=== PATIENT | female | born 1980 | race Caucasian/White ===

== ENCOUNTER 2022-08-20 12:28 | Outpatient (OUT) | payer OTHER, SELFPAY ==
--- NOTE | 2022-08-20 12:41 | CT_ITS ---
The [address] [address] Patient Name: ERIKA CLARK MRN: [id number] date: 1980 Sex: F Assigned Patient Location: CT Current Patient Location: CT Accession/Order Number: [id number] Exam Date: 08/20/2022 13:55 Report Date: 08/20/2022 16:08 At the request of: NATACHA SALAMANCA Procedure: CT foot RT wo con EXAM: CT foot RT wo con HISTORY: Pain due to internal orthopedic prosthetic devices COMPARISON: Foot x-rays 08/08/2022 TECHNIQUE: Axial CT imaging is performed. Sagittal and coronal reformatted/reconstructed sequencing was additionally performed. FINDINGS: Patient is status post first metatarsophalangeal joint arthrodesis using dorsal plate and screws. The internal hardware exhibits no gross abnormality. No visualized fracture, dislocation, subluxation or osseous lesion. No visualized soft tissue edema. There appears to be osseous incorporation of the postoperative bed. The remainder of the joint spaces are unremarkable. IMPRESSION: Postoperative first metatarsophalangeal joint arthrodesis with no gross visualized osseous abnormality. Electronically authenticated by: RODRI NELSON Date: 08/20/2022 16:08
== END 2022-08-20 12:29 ==
LOC: CT 12:29
PROVIDERS: PCP Family Medicine; Visit Provider Podiatrist Foot & Ankle Surgery
DX: T84.84XA Pain due to internal orthopedic prosthetic devices, implants and grafts, initial encounter (principal); R10.0 Acute abdomen
CPT/HCPCS: 73700

== ENCOUNTER 2022-08-20 12:45 | Outpatient (OUT) | payer OTHER, SELFPAY ==
--- NOTE | 2022-08-20 12:50 | CT_ITS ---
[address] [address] Patient Name: ERIKA CLARK MRN: [id number] date: 1980 Sex: F Assigned Patient Location: CT Current Patient Location: CT Accession/Order Number: [id number] Exam Date: 08/20/2022 13:55 Report Date: 08/20/2022 16:27 At the request of: NON-STAFF PHYSICIAN Procedure: CT abdomen pelvis w con EXAMINATION: CT abdomen pelvis w con HISTORY: Acute abdomen pain R10.0 Left upper quad pain, sx 07-09-22 to remove part of pancreas and spleen COMPARISON: CT abdomen 05/09/2022, MRI abdomen 06/04/2022 TECHNIQUE: Axial, Coronal, and Sagittal images were obtained without and/or with IV contrast as indicated by examination type. Dose reduction techniques were achieved by using automated exposure control and/or adjustment of mA and/or kV according to patient size and/or use of iterative reconstruction technique. FINDINGS: LUNG BASES: No visible pulmonary or pleural disease. LIVER: No enlargement, atrophy, suspicious density, or significant focal lesion. BILIARY: No dilatation or calcification. PANCREAS: 4.2 cm cyst at tail of pancreas. No appreciable mass or abnormal duct dilation. SPLEEN: Splenectomy. ADRENALS: No mass or enlargement. KIDNEYS: No mass, obstruction, or calcification. BOWEL/MESENTERY: No visible mass, obstruction, or bowel wall thickening. AORTA/VASCULAR: No aneurysm or dissection. RETROPERITONEUM: No mass or adenopathy. LYMPH NODES: No adenopathy. URINARY BLADDER: No visible focal wall thickening, lesion, or calculus. PELVIC ORGANS: Hysterectomy. ABDOMINAL WALL: No mass or hernia. BONES: No bony lesion or fracture. OTHER: Negative. IMPRESSION: 1.No acute or specific findings to account for patient's left upper quadrant symptoms. 2.Pancreatic pseudocysts 4.2 cm in diameter, adjacent the tail of the pancreas. This is significantly smaller than the previously seen 9.2 cm cyst. 3. No findings to suggest pancreatitis. 4. Interval splenectomy. No suspicious findings. Electronically authenticated by: FREDDIE CASAS Date: 08/20/2022 16:27
== END 2022-08-20 12:46 ==
LOC: CT 12:45
PROVIDERS: PCP Family Medicine
DX: R10.0 Acute abdomen (principal)
CPT/HCPCS: 73700; 74177; Q9967

== ENCOUNTER 2022-11-22 08:45 | Outpatient (OUT) | payer OTHER, SELFPAY ==
--- NOTE | 2022-11-22 09:24 | PM.PRESUREVA ---
History of Present Illness History of Present Illness Chief complaint: painful hardware right foot Narrative: Patient presents for preadmission testing. The patient states she had right foot surgery approximately a year ago and has been having pain with the hardware. She states the pain is worse when she is walking. She denies numbness, tingling, weakness, or any other complaints. Review of Systems ROS Narrative REVIEW OF SYSTEMS: Negative except as stated in HPI, ten or more systems reviewed. Constitutional: No fever , chills, weakness ENT: No sore throat or epistaxis Cardiovascular: No edema, chest pain, palpitations, or activity intolerance Respiratory: No shortness of breath, cough, or wheezing Gastrointestinal: No abdominal pain, constipation, diarrhea, or vomiting Genitourinary: No dysuria or hematuria Neurological: No numbness, tingling, weakness, or headache Psychiatric: No mood changes [facility] Medical History (Updated 11/22/22 @ 09:12 by Latasha Morris NP) Surgical History (Updated 11/22/22 @ 09:12 by Latasha Morris NP) Family History (Updated 11/22/22 @ 09:12 by Latasha Morris NP) Other Family history of hypertension Social History (Updated 11/22/22 @ 09:08 by Latasha Morris NP) Within the past year, how often did you have a drink containing alcohol: 2-3 times a week Smoking status: Never smoker Non-prescribed substance use: denies use Previous occupational history: Self Employed Highest level of school completed/degree received: Associate degree: academic program Meds Home Medications and Allergies Home Medications Medication Instructions Recorded Confirmed Type acetaminophen 500 mg tablet 500 mg PO Q6H 11/22/22 11/22/22 History alprazolam 0.25 mg tablet 0.25 mg PO QDAY PRN anxiety 11/22/22 11/22/22 History cyclobenzaprine 10 mg tablet 10 mg PO QPM 11/22/22 11/22/22 History levothyroxine 112 mcg tablet 112 mcg PO QDAY 11/22/22 11/22/22 History (Synthroid) Allergies Allergy/AdvReac Type Severity Reaction Status Date / Time amoxicillin Allergy Rash Verified 11/22/22 09:05 Penicillins Allergy Rash Verified 11/22/22 09:05 Exam Narrative Exam Narrative: Constitutional: Awake, alert, comfortable, well-appearing, nontoxic, interactive, vital signs as charted Head: Normocephalic, atraumatic Neck: Supple, normal appearance, normal range of motion, no meningeal signs, no lymphadenopathy Respiratory: No respiratory distress, breath sounds clear Cardiovascular: Regular rate and rhythm, strong and regular heart tones Musculoskeletal: Normal gait, no swelling or edema; right foot: tenderness overlying the dorsal aspect of the 1st right MPJ, limited range of motion, good capillary refill, sensation intact Skin: No rashes or induration, no lesions, only visible skin inspected Neuro: No neurological deficits, normal sensation Psychiatric: Oriented ?3, normal affect Assessment and Plan Assessment and Plan (1) Painful orthopaedic hardware: Plan Removal of hardware right foot scheduled with Dr. Brown 12/10/2022.
== END 2022-11-22 08:46 | disposition home or self-care (01) ==
LOC: PST 08:46
PROVIDERS: PCP Family Medicine
DX: Z01.818 Encounter for other preprocedural examination (principal); T84.84XA Pain due to internal orthopedic prosthetic devices, implants and grafts, initial encounter
CPT/HCPCS: G0463

== ENCOUNTER 2022-12-10 06:25 | Day surgery (SDC) | payer OTHER, SELFPAY ==
[2022-11-22 09:21] VITALS: BP 119/80; PULSE 74; RESP 14; TEMP 36.5; O2SAT 99; BMI 24.8
[2022-12-10] VITALS (11 sets, daily range): BP systolic 116–137; BP diastolic 75–96; PULSE 57–105; RESP 7–19; TEMP 36.1–36.2; O2SAT 97–100; BMI 24.8
[2022-12-10 06:47] LABS: Glucometer 102 mg/dL (74-106)
[2022-12-10] MEDS: LACTATED RINGER'S SOLUTION 1,000 ML 50 ML IV (07:03)
[2022-12-10] MEDS: SCOPOLAMINE 1 MG/3 DAYS TRANSDERM PATCH 1 PATCH TD (07:20)
[2022-12-10] MEDS: CLINDAMYCIN PHOSPHATE/D5W 900 MG/50 ML PIGGYBACK 100 MG IV (07:40)
[2022-12-10] MEDS: BUPIVACAINE HCL 0.5% PF 50 MG/10 ML VIAL INJ (08:04)
--- NOTE | 2022-12-10 08:34 | XR_ITS ---
The [address] [address] Patient Name: ERIKA CLARK MRN: [id number] date: 1980 Sex: F Assigned Patient Location: [facility] Current Patient Location: Accession/Order Number: [id number] Exam Date: 12/10/2022 09:00 Report Date: 12/10/2022 15:16 At the request of: RAYRAY AYALA Procedure: XR foot RT min 3V EXAM: XR foot RT min 3V HISTORY: postop xr pacu COMPARISON: 08/08/2022. TECHNIQUE: 3 views right foot. FINDINGS/IMPRESSION: Recent postoperative change removal of first MTP joint arthrodesis hardware. There is recent postoperative change and edema with overlying bandaging. Solid osseous fusion present without fracture across the first MTP joint. Remaining osseous structures intact. Electronically authenticated by: KATIE DE PAZ Date: 12/10/2022 15:16
[2022-12-10 09:16] LABS: Glucometer 102 mg/dL (74-106)
--- NOTE | 2022-12-10 09:28 | P.ORON_ITS ---
Brief Operative Note Date of procedure: 12/10/22 Pre-op diagnosis: painful retained hardware right foot Post-op diagnosis: same as pre-op Procedure: PROCEDURE(S) PERFORMED: removal of deep orthopedic hardware right foot INTRAOPERATIVE FINDINGS: stable fixation over the 1st metatarsophalangeal joint. Once hardware was removed the joint was stressed and was stable indicating adequate osseous fusion. Bone bled appropriately and there is no signs of infection. PROCEDURE IN DETAIL: Patient was identified in pre op and consent was reviewed. Correct side and site were identified and marked. Pre-op antibiotics were started. Patient was brought to OR suite and place on table in a supine position. General anesthesia was administered. A tourniquet was applied. Operative extremity was prepped and draped in usual sterile fashion. Formal time-out was performed and the foot/ankle were exsanguinated and tourniquet inflated. Incision created over dorsal aspect of the 1st MPJ. Bleeders coagulated. EHL protected throughout the procedure. sharp dissection was utilized to expose the digit a dorsal plate and screw fixation. The plate screws were removed with appropriate screwdriver allowing the plate to be easily removed with the aid of a Banks elevator. Dissection was then taken medially along the proximal condyle of the proximal phalanx. The screw was identified and removed with appropriate screwdriver. All screw holes were then curetted noting healthy bleeding bone. The joint was then stressed and there was no motion with visible osseous healing of the 1st metatarsophalangeal joint. The tourniquet was deflated with a prompt hyperemic response in the incision was closed in layers after flushing the surgical site with copious saline. A dry sterile dressing consisting of Xeroform or by fours and Santos wrap were applied followed by a surgical shoe POSTOPERATIVE PLAN: Discharge home under family's care Post op instructions provided verbally and written prescription(s) were placed in chart weightbearing as tolerated Follow-up in 1-3 weeks Implants: none Surgeon: Michael Brown Decision Science Analyst: Nick Mcconnell Estimated blood loss (mL): 10 Pathology: none sent Condition: stable Disposition: PACU Preoperative Details Reason for procedure: patient is a healthy 42-year-old female who underwent right 1st metatarsophalangeal joint fusion on 12/18/21. She had an uncomplicated postoperative recovery and adequate perfusion was obtained however at present appointment shoe related to pain over the dorsal aspect of the joint. The dorsal plate and screws construct was palpable and tender. She also had some tenderness over the medial aspect of the great toe over palpable screw head. Given her adequate fusion she wished to proceed with hardware removal. She was educated all potential risks and benefits as well as the postoperative recovery. All questions were answered to her satisfaction.
== END 2022-12-10 10:07 | disposition home or self-care (01) ==
PROVIDERS: PCP Family Medicine; Visit Provider Podiatrist Foot & Ankle Surgery
PROC: (CPT 20680; principal; 2022-12-10 07:30)
DX: T84.84XA Pain due to internal orthopedic prosthetic devices, implants and grafts, initial encounter (principal); J45.909 Unspecified asthma, uncomplicated; Z85.850 Personal history of malignant neoplasm of thyroid; Z90.710 Acquired absence of both cervix and uterus
CPT/HCPCS: 20680; 36415; 73630; 82948; J2704